=== PATIENT | female | born 1950 | race Caucasian/White ===

== ENCOUNTER → 2018-02-22 15:16 | Outpatient (CLI) | payer MEDICARE, BC, SELFPAY ==
[2018-02-22 17:45] LABS: Absolute Lymphocyte Count 1.14 X10^3/ul (0.83-4.51); Absolute Neutrophil Count 3.9 X10^3/uL (2.0-7.7); Basophil# 0.03 X10^3/uL; Basophil% 0.5 % (0-1); Eosinophil# 0.28 X10^3/uL; Eosinophils% 4.6 % (0-5); Hematocrit 41.4 % (37-47); Hemoglobin 13.7 g/dl (12.0-15.0); Lymphocyte # 1.14 X10^3/ul (4.0); Lymphocyte % 18.9 % (19-41); Mean Corp Hgb Conc 33.1 g/gl (32-36); Mean Corpuscular Hgb 33.1 pg (27.0-32.0); Mean Platelet Vol. 9.4 fl (6.2-12.0); Monocyte# 0.66 X10^3/uL; Monocyte% 10.9 % (0-10); Neutrophil # 3.92 X10^3/uL (2.7-7.7); Neutrophil % 64.9 % (47-70); Platelet Count 274 K/mm3 (150-450); RBC Distribution Width SD 47.4 fl (35.1-43.9); Red Blood Count 4.14 M/mm3 (4.2-5.4)
[2018-02-22 17:54] LABS: POSITIVE COUNT NO; POSITIVE DIFFERENTIAL NO; POSITIVE MORPHOLOGY NO
[2018-02-22 18:01] LABS: AST(SGOT) 31 U/L (15-37); Alanine Aminotransfer ALT/SGPT 28 U/L (13-56); Albumin, Serum 3.6 g/dL (3.2-5.0); Alkaline Phosphatase 83 U/L (45-117); Anion Gap 7 (5-15); BUN 17 mg/dL (7-18); BUN/Creat Ratio 18.1 RATIO (10-20); CRP 4.76 mg/L (0.0-3.0); Calcium,Total 8.7 mg/dL (8.5-10.1); Chloride 108 mmol/L (98-107); Creatinine, Serum 0.94 mg/dL (0.55-1.02); EST Glomerular Filtration Rate 63 mL/min (>60); Est Glom Filt Rate - Afr Amer 76 mL/min (>60); Globulin 3.7 g/dL (2.2-4.2); Glucose 80 mg/dL (74-106); Potassium 4.1 mmol/L (3.5-5.1); Protein, Total 7.3 g/dL (6.4-8.2); Sodium Level 143 mmol/L (136-145)
[2018-02-22 18:07] LABS: Erythrocyte Sedimentation Rate 10 mm/hr (0-30)
== END ==
PROVIDERS: Family Provider Family Medicine; PCP Family Medicine; Visit Provider Internal Medicine Rheumatology
DX: M06.09 Rheumatoid arthritis without rheumatoid factor, multiple sites (principal); Z79.899 Other long term (current) drug therapy; M15.9 Polyosteoarthritis, unspecified; F32.89 Other specified depressive episodes; E89.0 Postprocedural hypothyroidism; G47.33 Obstructive sleep apnea (adult) (pediatric)
CPT/HCPCS: 36415; 80053; 85025; 85652; 86140

== ENCOUNTER → 2019-02-06 07:21 | Outpatient (CLI) | payer MEDICARE, BC, SELFPAY ==
[2019-02-06 10:17] LABS: Erythrocyte Sedimentation Rate 4 mm/hr (0-30)
[2019-02-06 10:25] LABS: Absolute Lymphocyte Count 1.29 X10^3/uL (0.83-4.51); Absolute Neutrophil Count 2.5 X10^3/uL (2.0-7.7); Basophil# 0.04 X10^3/uL; Basophil% 0.9 % (0-1); Eosinophil# 0.22 X10^3/uL; Eosinophils% 4.8 % (0-5); Hemoglobin 13.9 g/dL (12.0-15.0); Lymphocyte # 1.29 X10^3/ul (4.0); Lymphocyte % 28.4 % (19-41); Mean Corp Hgb Conc 33.9 g/dL (32-36); Mean Corpuscular Hgb 33.7 pg (27.0-32.0); Mean Corpuscular Volume 99.3 fL (81-99); Mean Platelet Vol. 9.3 fl (6.2-12.0); Monocyte# 0.53 X10^3/uL; Monocyte% 11.6 % (0-10); Neutrophil # 2.45 X10^3/uL (2.7-7.7); Neutrophil % 53.9 % (47-70); Platelet Count 263 K/mm3 (150-450); RBC Distribution Width CV 11.9 % (11.6-14.6); Red Blood Count 4.13 M/mm3 (4.2-5.4); White Blood Count 4.6 K/mm3 (4.4-11.0)
[2019-02-06 10:42] LABS: AST(SGOT) 24 U/L (15-37); Alanine Aminotransfer ALT/SGPT 24 U/L (13-56); Albumin, Serum 3.4 g/dL (3.2-5.0); Alkaline Phosphatase 76 U/L (45-117); Anion Gap 6 (5-15); BUN 22 mg/dL (7-18); BUN/Creat Ratio 22.4 RATIO (10-20); CRP < 2.90 mg/L (0.0-3.0); Calcium,Total 8.6 mg/dL (8.5-10.1); Chloride 106 mmol/L (98-107); Creatinine, Serum 0.98 mg/dL (0.55-1.02); EST Glomerular Filtration Rate 59 mL/min (>60); Est Glom Filt Rate - Afr Amer 72 mL/min (>60); Globulin 3.3 g/dL (2.2-4.2); Glucose 92 mg/dL (74-106); Potassium 4.1 mmol/L (3.5-5.1); Protein, Total 6.7 g/dL (6.4-8.2); Sodium Level 141 mmol/L (136-145)
== END ==
PROVIDERS: Family Provider Family Medicine; PCP Family Medicine; Referring Provider Internal Medicine Rheumatology; Visit Provider Internal Medicine Rheumatology
DX: M06.09 Rheumatoid arthritis without rheumatoid factor, multiple sites (principal); Z79.899 Other long term (current) drug therapy; M15.9 Polyosteoarthritis, unspecified; E89.0 Postprocedural hypothyroidism; G47.33 Obstructive sleep apnea (adult) (pediatric); F32.89 Other specified depressive episodes
CPT/HCPCS: 36415; 80053; 85025; 85652; 86140

== ENCOUNTER → 2019-03-27 15:18 | Outpatient (CLI) | payer MEDICARE, BC, SELFPAY ==
[2017-02-15 07:04] VITALS: BMI 28.1
[2019-03-27 19:43] LABS: M R Staph aureus DNA By PCR Negative (Negative); Probe Check PASS; Specimen Processing Control PASS
== END ==
PROVIDERS: Family Provider Family Medicine; PCP Family Medicine; Referring Provider Internal Medicine Pulmonary Disease; Visit Provider Internal Medicine Pulmonary Disease
DX: J34.89 Other specified disorders of nose and nasal sinuses (principal)
CPT/HCPCS: 87641

== ENCOUNTER → 2019-04-09 08:45 | Outpatient (CLI) | payer MEDICARE, BC, SELFPAY ==
[2017-02-15 07:04] VITALS: BMI 28.1
[2019-04-09 10:07] LABS: Absolute Lymphocyte Count 1.01 X10^3/uL (0.83-4.51); Absolute Neutrophil Count 2.1 X10^3/uL (2.0-7.7); Basophil# 0.05 X10^3/uL; Basophil% 1.3 % (0-1); Eosinophil# 0.17 X10^3/uL; Eosinophils% 4.5 % (0-5); Hematocrit 39.8 % (37-47); Hemoglobin 13.5 g/dL (12.0-15.0); Lymphocyte # 1.01 X10^3/ul (4.0); Mean Corp Hgb Conc 33.9 g/dL (32-36); Mean Corpuscular Hgb 34.2 pg (27.0-32.0); Mean Corpuscular Volume 100.8 fL (81-99); Mean Platelet Vol. 8.8 fl (6.2-12.0); Monocyte# 0.41 X10^3/uL; NRBC Flagged by Analyzer 0 % (0-5); Neutrophil # 2.07 X10^3/uL (2.7-7.7); Neutrophil % 55.4 % (47-70); Platelet Count 234 K/mm3 (150-450); RBC Distribution Width CV 13.3 % (11.6-14.6); RBC Distribution Width SD 47.8 fl (35.1-43.9); Red Blood Count 3.95 M/mm3 (4.2-5.4); White Blood Count 3.7 K/mm3 (4.4-11.0)
[2019-04-09 10:36] LABS: AST(SGOT) 27 U/L (15-37); Alanine Aminotransfer ALT/SGPT 28 U/L (13-56); Albumin, Serum 3.6 g/dL (3.2-5.0); Alkaline Phosphatase 90 U/L (45-117); Anion Gap 8 (5-15); BUN 18 mg/dL (7-18); BUN/Creat Ratio 21.1 RATIO (10-20); Calcium,Total 8.8 mg/dL (8.5-10.1); Chloride 109 mmol/L (98-107); Creatinine, Serum 0.85 mg/dL (0.55-1.02); EST Glomerular Filtration Rate 70 mL/min (>60); Est Glom Filt Rate - Afr Amer 85 mL/min (>60); Globulin 3.5 g/dL (2.2-4.2); Glucose 92 mg/dL (74-106); Potassium 4.5 mmol/L (3.5-5.1); Protein, Total 7.1 g/dL (6.4-8.2); Sodium Level 143 mmol/L (136-145)
== END ==
PROVIDERS: Family Provider Family Medicine; PCP Family Medicine; Referring Provider Internal Medicine Rheumatology; Visit Provider Internal Medicine Rheumatology
DX: M06.09 Rheumatoid arthritis without rheumatoid factor, multiple sites (principal); M18.11 Unilateral primary osteoarthritis of first carpometacarpal joint, right hand; E89.0 Postprocedural hypothyroidism; G47.33 Obstructive sleep apnea (adult) (pediatric); Z79.899 Other long term (current) drug therapy
CPT/HCPCS: 36415; 80053; 85025

== ENCOUNTER → 2019-11-27 13:54 | Outpatient (CLI) | payer MEDICARE, BC, SELFPAY ==
[2017-02-15 07:04] VITALS: BMI 28.1
[2019-11-27 14:47] LABS: Absolute Lymphocyte Count 1.22 X10^3/uL (0.83-4.51); Absolute Neutrophil Count 2.9 X10^3/uL (2.0-7.7); Basophil# 0.03 X10^3/uL; Basophil% 0.6 % (0-1); Eosinophil# 0.15 X10^3/uL; Eosinophils% 3.1 % (0-5); Hematocrit 39.6 % (37-47); Hemoglobin 13.5 g/dL (12.0-15.0); Lymphocyte # 1.22 X10^3/ul (4.0); Lymphocyte % 25.5 % (19-41); Mean Corp Hgb Conc 34.1 g/dL (32-36); Mean Corpuscular Hgb 33.5 pg (27.0-32.0); Mean Corpuscular Volume 98.3 fL (81-99); Mean Platelet Vol. 9.2 fl (6.2-12.0); Monocyte% 10.5 % (0-10); NRBC Flagged by Analyzer 0 % (0-5); Neutrophil # 2.87 X10^3/uL (2.7-7.7); Neutrophil % 60.1 % (47-70); Platelet Count 234 K/mm3 (150-450); RBC Distribution Width CV 12.1 % (11.6-14.6); RBC Distribution Width SD 44.1 fl (35.1-43.9); Red Blood Count 4.03 M/mm3 (4.2-5.4); White Blood Count 4.8 K/mm3 (4.4-11.0)
[2019-11-27 15:44] LABS: AST(SGOT) 27 U/L (15-37); Alanine Aminotransfer ALT/SGPT 28 U/L (13-56); Albumin, Serum 3.6 g/dL (3.2-5.0); Alkaline Phosphatase 85 U/L (45-117); Anion Gap 3 (5-15); BUN 21 mg/dL (7-18); BUN/Creat Ratio 22.3 RATIO (10-20); Calcium,Total 8.9 mg/dL (8.5-10.1); Chloride 108 mmol/L (98-107); Creatinine, Serum 0.94 mg/dL (0.55-1.02); EST Glomerular Filtration Rate 62 mL/min (>60); Est Glom Filt Rate - Afr Amer 75 mL/min (>60); Globulin 3.6 g/dL (2.2-4.2); Glucose 88 mg/dL (74-106); Protein, Total 7.2 g/dL (6.4-8.2); Sodium Level 139 mmol/L (136-145)
== END ==
PROVIDERS: PCP Family Medicine; Referring Provider Internal Medicine Rheumatology; Visit Provider Internal Medicine Rheumatology
DX: M06.00 Rheumatoid arthritis without rheumatoid factor, unspecified site (principal); M18.11 Unilateral primary osteoarthritis of first carpometacarpal joint, right hand; F32.89 Other specified depressive episodes; E89.0 Postprocedural hypothyroidism; G47.33 Obstructive sleep apnea (adult) (pediatric); Z79.899 Other long term (current) drug therapy
CPT/HCPCS: 36415; 80053; 85025

== ENCOUNTER → 2019-12-10 07:07 | Outpatient (CLI) | payer MEDICARE, BC, SELFPAY ==
[2017-02-15 07:04] VITALS: BMI 28.1
[2019-12-10 10:22] LABS: Cholesterol 214 mg/dL (200); High Density Lipoprotein 58 mg/dL; Thyroid Stim Hormone (TSH) 3.34 uIU/mL (0.358-3.74); Triglycerides 121 mg/dL; Very Low Density Lipoprotein 24 mg/dL (5-40)
== END ==
PROVIDERS: PCP Family Medicine; Referring Provider Family Medicine; Visit Provider Family Medicine
DX: E78.00 Pure hypercholesterolemia, unspecified (principal); E03.9 Hypothyroidism, unspecified
CPT/HCPCS: 36415; 80061; 84443

== ENCOUNTER → 2020-03-20 14:55 | Outpatient (CLI) | payer MEDICARE, BC, SELFPAY ==
[2017-02-15 07:04] VITALS: BMI 28.1
[2020-03-20 17:33] LABS: Absolute Lymphocyte Count 1.03 X10^3/uL (0.83-4.51); Absolute Neutrophil Count 3.7 X10^3/uL (2.0-7.7); Basophil# 0.02 X10^3/uL; Basophil% 0.4 % (0-1); Eosinophil# 0.12 X10^3/uL; Eosinophils% 2.3 % (0-5); Hematocrit 40.9 % (37-47); Hemoglobin 13.9 g/dL (12.0-15.0); Lymphocyte # 1.03 X10^3/ul (4.0); Lymphocyte % 19.7 % (19-41); Mean Corpuscular Hgb 34.2 pg (27.0-32.0); Mean Corpuscular Volume 100.5 fL (81-99); Mean Platelet Vol. 9.9 fl (6.2-12.0); Monocyte# 0.37 X10^3/uL; Monocyte% 7.1 % (0-10); NRBC Flagged by Analyzer 0 % (0-5); Neutrophil # 3.68 X10^3/uL (2.7-7.7); Neutrophil % 70.3 % (47-70); Platelet Count 269 K/mm3 (150-450); RBC Distribution Width CV 11.9 % (11.6-14.6); RBC Distribution Width SD 43.4 fl (35.1-43.9); Red Blood Count 4.07 M/mm3 (4.2-5.4); White Blood Count 5.2 K/mm3 (4.4-11.0)
[2020-03-20 17:54] LABS: ALB/GLOB Ratio 1.1 RATIO (0.9-2.4); AST(SGOT) 30 U/L (15-37); Alanine Aminotransfer ALT/SGPT 33 U/L (13-56); Albumin, Serum 3.7 g/dL (3.2-5.0); Alkaline Phosphatase 88 U/L (45-117); Anion Gap 6 (5-15); BUN 18 mg/dL (7-18); BUN/Creat Ratio 16.4 RATIO (10-20); Calcium,Total 8.6 mg/dL (8.5-10.1); Chloride 107 mmol/L (98-107); EST Glomerular Filtration Rate 52 mL/min (>60); Est Glom Filt Rate - Afr Amer 63 mL/min (>60); Globulin 3.5 g/dL (2.2-4.2); Glucose 160 mg/dL (74-106); Potassium 3.7 mmol/L (3.5-5.1); Protein, Total 7.2 g/dL (6.4-8.2); Sodium Level 139 mmol/L (136-145)
== END ==
PROVIDERS: PCP Family Medicine; Referring Provider Internal Medicine Rheumatology; Visit Provider Internal Medicine Rheumatology
DX: M06.00 Rheumatoid arthritis without rheumatoid factor, unspecified site (principal); M15.9 Polyosteoarthritis, unspecified; F32.89 Other specified depressive episodes; E89.0 Postprocedural hypothyroidism; G47.33 Obstructive sleep apnea (adult) (pediatric); Z79.899 Other long term (current) drug therapy
CPT/HCPCS: 36415; 80053; 85025

== ENCOUNTER → 2020-12-25 08:11 | Outpatient (CLI) | payer MEDICARE, BC, SELFPAY ==
[2017-02-15 07:04] VITALS: BMI 28.1
[2020-12-25 10:31] LABS: Absolute Lymphocyte Count 0.97 X10^3/uL (0.83-4.51); Absolute Neutrophil Count 1.9 X10^3/uL (2.0-7.7); Basophil# 0.03 X10^3/uL; Basophil% 0.8 % (0-1); Eosinophil# 0.16 X10^3/uL; Eosinophils% 4.5 % (0-5); Hematocrit 42.1 % (37-47); Hemoglobin 13.9 g/dL (12.0-15.0); Lymphocyte # 0.97 X10^3/ul (0.83-4.51); Lymphocyte % 27.3 % (19-41); Mean Corpuscular Hgb 33.5 pg (27.0-32.0); Mean Corpuscular Volume 101.4 fL (81-99); Mean Platelet Vol. 9.3 fl (6.2-12.0); Monocyte# 0.45 X10^3/uL; Monocyte% 12.7 % (0-10); NRBC Flagged by Analyzer 0 % (0-5); Neutrophil # 1.93 X10^3/uL (2.7-7.7); Neutrophil % 54.4 % (47-70); Platelet Count 241 K/mm3 (150-450); RBC Distribution Width SD 44.8 fl (35.1-43.9); Red Blood Count 4.15 M/mm3 (4.2-5.4); White Blood Count 3.6 K/mm3 (4.4-11.0)
[2020-12-25 10:38] LABS: ALB/GLOB Ratio 1.2 RATIO (0.9-2.4); AST(SGOT) 26 U/L (15-37); Alanine Aminotransfer ALT/SGPT 27 U/L (13-56); Albumin, Serum 3.7 g/dL (3.2-5.0); Alkaline Phosphatase 69 U/L (45-117); Anion Gap 4 (5-15); BUN 17 mg/dL (7-18); Calcium,Total 9.1 mg/dL (8.5-10.1); Chloride 108 mmol/L (98-107); EST Glomerular Filtration Rate 66 mL/min (>60); Est Glom Filt Rate - Afr Amer 80 mL/min (>60); Globulin 3.2 g/dL (2.2-4.2); Glucose 101 mg/dL (74-106); Potassium 4.2 mmol/L (3.5-5.1); Protein, Total 6.9 g/dL (6.4-8.2); Sodium Level 142 mmol/L (136-145)
[2020-12-25 10:53] LABS: Cholesterol 195 mg/dL (200); High Density Lipoprotein 57 mg/dL; Thyroid Stim Hormone (TSH) 0.81 uIU/mL (0.358-3.74); Triglycerides 120 mg/dL; Very Low Density Lipoprotein 24 mg/dL (5-40)
== END ==
PROVIDERS: PCP Family Medicine; Referring Provider Internal Medicine Rheumatology; Visit Provider Internal Medicine Rheumatology
DX: M06.00 Rheumatoid arthritis without rheumatoid factor, unspecified site (principal); Z79.899 Other long term (current) drug therapy; M15.9 Polyosteoarthritis, unspecified; M18.11 Unilateral primary osteoarthritis of first carpometacarpal joint, right hand; F32.9 Major depressive disorder, single episode, unspecified; E89.0 Postprocedural hypothyroidism; G47.33 Obstructive sleep apnea (adult) (pediatric)
CPT/HCPCS: 36415; 80053; 80061; 84443; 85025

== ENCOUNTER → 2021-12-31 | Outpatient (CLI) | payer MEDICARE, BC, SELFPAY ==
[2021-12-31 12:21] LABS: Absolute Lymphocyte Count 0.84 X10^3/uL (0.83-4.51); Absolute Neutrophil Count 2.7 X10^3/uL (2.0-7.7); Basophil# 0.03 X10^3/uL; Basophil% 0.7 % (0-1); Eosinophil# 0.13 X10^3/uL; Eosinophils% 3.2 % (0-5); Hematocrit 40.4 % (37-47); Hemoglobin 13.7 g/dL (12.0-15.0); Lymphocyte # 0.84 X10^3/ul (0.83-4.51); Lymphocyte % 20.4 % (19-41); Mean Corp Hgb Conc 33.9 g/dL (32-36); Mean Corpuscular Hgb 33.8 pg (27.0-32.0); Mean Corpuscular Volume 99.8 fL (81-99); Mean Platelet Vol. 9.1 fl (6.2-12.0); Monocyte% 9.7 % (0-10); NRBC Flagged by Analyzer 0 % (0-5); Neutrophil % 65.8 % (47-70); Platelet Count 268 K/mm3 (150-450); RBC Distribution Width CV 11.9 % (11.6-14.6); RBC Distribution Width SD 43.3 fl (35.1-43.9); Red Blood Count 4.05 M/mm3 (4.2-5.4); White Blood Count 4.1 K/mm3 (4.4-11.0)
[2021-12-31 13:06] LABS: ALB/GLOB Ratio 1.2 RATIO (0.9-2.4); AST(SGOT) 28 U/L (15-37); Alanine Aminotransfer ALT/SGPT 38 U/L (13-56); Albumin, Serum 3.8 g/dL (3.2-5.0); Alkaline Phosphatase 70 U/L (45-117); Anion Gap 5 (5-15); BUN 19 mg/dL (7-18); Calcium,Total 9.2 mg/dL (8.5-10.1); Chloride 108 mmol/L (98-107); Creatinine, Serum 1.12 mg/dL (0.55-1.02); EST Glomerular Filtration Rate 51 mL/min (>60); Est Glom Filt Rate - Afr Amer 61 mL/min (>60); Globulin 3.2 g/dL (2.2-4.2); Glucose 76 mg/dL (74-106); Potassium 4.1 mmol/L (3.5-5.1); Sodium Level 140 mmol/L (136-145)
== END | disposition home or self-care (01) ==
LOC: MTLAB 11:13
PROVIDERS: PCP Nurse Practitioner Family; Referring Provider Internal Medicine Rheumatology; Visit Provider Internal Medicine Rheumatology
DX: M06.00 Rheumatoid arthritis without rheumatoid factor, unspecified site (principal); M18.11 Unilateral primary osteoarthritis of first carpometacarpal joint, right hand; F32.A Depression, unspecified; E89.0 Postprocedural hypothyroidism; Z79.899 Other long term (current) drug therapy
CPT/HCPCS: 36415; 80053; 85025

== ENCOUNTER → 2022-02-08 | Outpatient (CLI) | payer MEDICARE, BC, SELFPAY ==
[2022-02-08 17:32] LABS: Absolute Neutrophil Count 2.9 X10^3/uL (2.0-7.7); Basophil# 0.02 X10^3/uL; Basophil% 0.4 % (0-1); Eosinophil# 0.11 X10^3/uL; Eosinophils% 2.4 % (0-5); Hematocrit 41.5 % (37-47); Hemoglobin 14.1 g/dL (12.0-15.0); Lymphocyte % 25.8 % (19-41); Mean Corpuscular Hgb 33.7 pg (27.0-32.0); Mean Platelet Vol. 9.6 fl (6.2-12.0); Monocyte# 0.45 X10^3/uL; Monocyte% 9.7 % (0-10); NRBC Flagged by Analyzer 0 % (0-5); Neutrophil # 2.87 X10^3/uL (2.7-7.7); Neutrophil % 61.5 % (47-70); Platelet Count 247 K/mm3 (150-450); RBC Distribution Width CV 11.8 % (11.6-14.6); RBC Distribution Width SD 42.9 fl (35.1-43.9); Red Blood Count 4.19 M/mm3 (4.2-5.4); White Blood Count 4.7 K/mm3 (4.4-11.0)
[2022-02-08 18:04] LABS: Anion Gap 7 (5-15); BUN 20 mg/dL (7-18); BUN/Creat Ratio 22.5 RATIO (10-20); Calcium,Total 9.4 mg/dL (8.5-10.1); Chloride 107 mmol/L (98-107); Creatinine, Serum 0.89 mg/dL (0.55-1.02); EST Glomerular Filtration Rate 66 mL/min (>60); Est Glom Filt Rate - Afr Amer 80 mL/min (>60); Glucose 80 mg/dL (74-106); Sodium Level 141 mmol/L (136-145)
== END | disposition home or self-care (01) ==
LOC: MTLAB 14:25
PROVIDERS: PCP Family Medicine; Referring Provider Family Medicine; Visit Provider Family Medicine
DX: Z01.812 Encounter for preprocedural laboratory examination (principal)
CPT/HCPCS: 36415; 80048; 85025

== ENCOUNTER 2022-04-15 09:25 | Outpatient (RCR) | payer MEDICARE, BC, SELFPAY ==
--- NOTE | 2022-04-15 11:45 | HP.PTEVAL_ITS ---
Patient's Visit Information GURWINDER VALDES is a 71 year old F referred to Physical Therapy by Dr. Vibha Pabon MD with a diagnosis of LEFT HAMSTRING STRAIN. Date of Evaluation: 04/15/22 Physical Therapist: Judie Arreola PT, Cert MDT - Visit Plan Frequency: 2x /Week Duration: 4-6 Weeks Plan: *PATIENT REPORTS SHE DID NOT TELL DR. PABON ABOUT HER L GROIN PAIN OR HER UNREPAIRED LEFT ACL. THIS PT RECOMMENDED PATIENT DISCUSS THESE WITH DR. PABON BEFORE PROCEEDING WITH THERAPY INCASE SHE WANTS TO DO MORE TESTING OR HAVE HER SEE SPECIALIST. PATIENT IS AGREEABLE*. GAIT TRAINING. DLS. POSTURE CORRECTION/STRENGTHENING. LLE ROM, STRETCHING AND STRENGTHEING. - Subjective THIS PATIENT PRESENTS TO PT WITH C/O PAIN BEHIND HER LEFT KNEE BUT WHEN SHE LAYS DOWN AT NIGHT SHE HAS PAIN ALL THE WAY DOWN HER LEG FROM HER BUTT TO HER ANKLE. SHE ALSO REPORTS LEFT GROIN AND THIGH PAIN. THE PAIN KEEPS HER FROM FALLING ASLEEP. PATIENT DENIES NUMBNESS AND TINGLING. DURING THE DAY AND WALKING MOST OF THE PAIN IS BEHIND HER KNEE. THE PAIN STARTED TUESDAY (04/10/22) FOR NO APPARENT REASON BUT STARTED WEARING A HARD INSOLE GIVEN TO HER FOR LEFT SHOE AFTER SURGICAL BOOT (L FOOT SX 02/15/22) TUESDAY (04/09/22). PATIENT REPORTS SHE DID REALLY GOOD WITH THE BOOT AFTER FOOT SURGERY (FOR ARTHRITIS - FUSED BIG TOE - NO MOBILITY THERE NOW). STILL WEARING HARD INSOLE AND HAS NOT TRIED TAKING IT OUT. DR. ROSA DID HER FOOT SURGERY AND SHE NOTIFIED THEM OF THE PAIN - THEY OFFERED TO SET HER UP WITH [facility]THO BUT CHOSE TO GO TO PCP INSTEAD. DR. PABON REFERRED HER HERE. PAIN RANGING 1/10 TO 8/10. BETTER IN SITTING. STEPS ARE VERY DIFFICULT. PMH: RA, MULTIPLE FOOT SX'S PRABHAKAR, PRABHAKAR CTR. *UNREPAIRED TORN ACL LEFT LE 20 YEARS AGO* PATIENT DENIES H/O BACK PAIN OR TREATMENTS. 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 CURRENTLY SHE HAS BEEN INSTUCTED BY THE FOOT DOCTOR SHE COULD START WORKING OUT AGAIN BUT TO STOP IF PAIN. ACTIVITY TOLERATED. PATIENT REPORTS THAT THE FOOT DOCTOR TOLD HER LAST WEEK THAT IF THE HARD SHOE INSERT DOESN'T WORK SHE DOESN'T HAVE TO WEAR IT. PATIENT REPORTS SHE THINKS SHE IS GOING TO TRY TO GO WITHOUT IT AND SEE HOW IT EFFECTS HER LEG. - Objective Sitting/Standing Posture: FAIR. DECREASED LUMBAR LORDOSIS. Other Observations: SLOW ANTALGIC GAIT LIMPING ON LLE WITH NO AD OR LOB. INDEP TRANSFERS BUT DIFFICULTY INITIATING GAIT AFTER SITTING AND C/O LEFT THIGH AND GROIN PAIN TRANSFERRING SIT TO SUPINE. C/O LEFT ANTERIOR PROX THIGH AND LEFT GROIN PAIN IN LYING AND CAN NOT FULLY EXTEND HIP TO LAY LEG FLAT IN SUPINE LYING. Sensory deficit: PRABHAKAR LE LIGHT TOUCH SENSATION IS GROSSLY INTACT AND SYMMETRICAL. ROM deficit: PRABHAKAR LE ROM IS WFL EXCEPT LEFT HIP IR IS APPROX 25% LIMITED COMPARED TO RIGHT WITH ERP INTO GROIN AND ERP WITH L HIP ER. THIS PT TESTED LE ROM AND STRENGTH CAREFULLY DUE TO PAIN BEING EASILY PROVOKED. Motor deficit: RIGHT LE 5/5 EXCEPT HIP 4/5. LLE: HIP FLEX 4-/5, ABD 4-/5, ADD 4-/5, IR 3-/5, ER 3+/5, KNEE FLEX/EXT 4-/5, ANKLE DORSIFLEXION 5/5. PATIENT DENIES PAIN WITH KNEE FLEX/EXT TESTING BUT C/O LEFT THIGH FATIGUE FEELING WITH KNEE EXT TESTING. Dural Signs: NEGATIVE PRABHAKAR LE'S. Lumbar mvmt loss: flex - MIN - PATIENT REPORTS LB STIFFNESS AND PRABHAKAR HS TIGHTNESS BUT NO PAIN AND NO SX'S LEFT > RIGHT. ext - MOD - PRODUCES CENTRAL LB DISCOMFORT. R SG - MOD. L SG - MOD. Core strength: POOR. Palpation: NO ACUTE TENDERNESS WITH PALPATION OF THE LOWER THORACIC, LUMBAR OR HIP REGIONS EXCEPT LEFT ISCHIAL TUBEROSITY. PATIENT IS TENDER ALONG L POST THIGH, KNEE AND CALF. TREATMENT: GAIT TRAINING WITH CANE ON LEVEL SURFACES AND UP AND DOWN STEPS WITH STEP TO PATTERN AND ONE HR. PATIENT DEMONSTRATED IMPROVED GAIT AND REPORTED MUCH LESS PAIN WITH GAIT WITH CANE. SHE REPORTS SHE CAN GET A CANE. PATIENT REPORTS SHE DID NOT TELL DR. PABON ABOUT HER L GROIN PAIN OR HER UNREPAIRED LEFT ACL. THIS PT RECOMMENDED PATIENT DISCUSS THESE WITH DR. PABON BEFORE PROCEEDING WITH THERAPY INCASE SHE WANTS TO DO MORE TESTING OR HAVE HER SEE SPECIALIST. PATIENT IS AGREEABLE. - Balance/Special Test Scores Lower Extremity Functional Score: 30 - Goals Goal 1:: INDEP AND SAFE GAIT ON LEVEL SURFACES AND UP AND DOWN STEPS WITHOUT AD OR DEVIATION Goal Time Frame: 4-6 Weeks Goal 2:: INCREASE FUNCTION ROM OF LEFT LE TO EASE ADL'S Goal Time Frame: 4-6 Weeks Goal 3:: INCREASE FUNCTIONAL STRENGTH OF LLE TO EASE ADL'S Goal Time Frame: 4-6 Weeks Goal 4:: PATIENT WILL BE INDEP WITH A HEP FOR CONTINUED IMPROVEMENT ONCE FORMAL PHYSICAL THERAPY CONCLUDES. Goal Time Frame: 4-6 Weeks - Anticipated Interventions Patient/Client Instruction: Educate patient on: Condition, Plan of Care, Risk Factors For the Purpose of:: To improve self management Therapeutic Exercise to Include: Strength training, Body mechanics, Postural training, Flexibilty training, Gait and locomotor training, Neuromotor development, Dynamic Lumbar Stabilization For the Purpose of:: To decrease pain, To increase ROM, To improve muscle performance and motor function, To increase tolerance to activity/condition/position, To improve ability of physical actions for home/community/work/leisure, To improve gait and locomotor functions Cryotherapy (ice pack, ice massage): Yes Thermo therapy (hot pack): Yes Ultrasound (thermal/non thermal): Yes For the Purpose of:: To decrease pain, To improve nutrient delivery to tissue Thank you for the opportunity to evaluate your patient. For Medicare and Medicare HMO plans, please review the plan of care and approve it. It will need to be FAXED BACK to us at [phone] for Medicare purposes. For Medicare only, by signing this I certify the plan of care. Please let me know if there are questions or concerns regarding this plan of care. Physician Signature: Date:
--- NOTE | 2022-07-23 08:45 | HP.PT.NRP ---
GURWINDER VALDES was seen in my office for initial evaluation on 04/15/22. The following Plan of Care was established for this patient: Initial Frequency: 2x /Week Initial Duration: 4-6 Weeks Patient/Client Instruction: Educate patient on: Condition, Plan of Care, Risk Factors For the Purpose of:: To improve self management Therapeutic Exercise to Include: Strength training, Body mechanics, Postural training, Flexibilty training, Gait and locomotor training, Neuromotor development, Dynamic Lumbar Stabilization For the Purpose of:: To decrease pain, To increase ROM, To improve muscle performance and motor function, To increase tolerance to activity/condition/position, To improve ability of physical actions for home/community/work/leisure, To improve gait and locomotor functions Cryotherapy (ice pack, ice massage): Yes Thermo therapy (hot pack): Yes Ultrasound (thermal/non thermal): Yes For the Purpose of:: To decrease pain, To improve nutrient delivery to tissue This patient was last seen in our office 03/25/22. Pertinent comments regarding their Physical therapy will appear below: This patient has not returned to Physical Therapy and is appropriate to return to MD for further follow-up as needed. At this point I will be discontinuing this patient from physical therapy. I would be happy to see this patient again in the future if found appropriate by the physician. Thank you! Judie Arreola, PT, Cert MDT Balance/Gait/Functional tests - Balance/Special Test Scores Lower Extremity Functional Score: 30
== END 2022-04-15 19:00 | disposition home or self-care (01) ==
LOC: PT 09:25
PROVIDERS: PCP Family Medicine; Referring Provider Family Medicine; Visit Provider Family Medicine
DX: S86.112D Strain of other muscle(s) and tendon(s) of posterior muscle group at lower leg level, left leg, subsequent encounter (principal); X58.XXXD Exposure to other specified factors, subsequent encounter
CPT/HCPCS: 97116; 97162

== ENCOUNTER → 2022-04-21 | Outpatient (CLI) | payer MEDICARE, BC, SELFPAY ==
--- NOTE | 2022-04-21 10:25 | RAD_ITS ---
STUDY: XR Knee Complete 4 Views or More 04/21/2022 4:54 PM REASON FOR EXAM: Female, 71 years old. PAIN TECHNIQUE: XR Knee Complete 4 Views or More LEFT COMPARISON: None FINDINGS: Normal visualized distal femur. Normal visualized proximal tibia and fibula. Normal proximal tibiofibular articulation. There is mild degenerative arthrosis of the medial femorotibial compartment. There is mild degenerative arthrosis of the lateral femorotibial compartment. There is mild degenerative arthrosis of the patellofemoral articulation. The soft tissue structures are unremarkable. RAD/Knee 4 or More Views IMPRESSION: Degenerative arthrosis. Electronically Signed: El Millan MD at 16:55 EDT ,
== END | disposition home or self-care (01) ==
LOC: MTRAD 10:24
PROVIDERS: PCP Family Medicine; Referring Provider Family Medicine; Visit Provider Family Medicine
DX: M17.12 Unilateral primary osteoarthritis, left knee (principal)
CPT/HCPCS: 73564

== ENCOUNTER → 2022-12-07 | Outpatient (CLI) | payer MEDICARE, BC, SELFPAY ==
[2022-12-07 15:52] LABS: Absolute Lymphocyte Count 1.07 X10^3/uL (0.83-4.51); Absolute Neutrophil Count 2.9 X10^3/uL (2.0-7.7); Basophil# 0.04 X10^3/uL; Basophil% 0.9 % (0-1); Eosinophil# 0.15 X10^3/uL; Eosinophils% 3.2 % (0-5); Hematocrit 39.1 % (37-47); Hemoglobin 13.2 g/dL (12.0-15.0); Lymphocyte # 1.07 X10^3/ul (0.83-4.51); Lymphocyte % 22.8 % (19-41); Mean Corp Hgb Conc 33.8 g/dL (32-36); Mean Corpuscular Hgb 34.1 pg (27.0-32.0); Mean Platelet Vol. 9.9 fl (6.2-12.0); Monocyte# 0.52 X10^3/uL; Monocyte% 11.1 % (0-10); NRBC Flagged by Analyzer 0 % (0-5); Neutrophil # 2.91 X10^3/uL (2.7-7.7); Neutrophil % 61.8 % (47-70); Platelet Count 263 K/mm3 (150-450); RBC Distribution Width CV 12.5 % (11.6-14.6); RBC Distribution Width SD 45.9 fl (35.1-43.9); Red Blood Count 3.87 M/mm3 (4.2-5.4); White Blood Count 4.7 K/mm3 (4.4-11.0)
[2022-12-07 16:38] LABS: ALB/GLOB Ratio 1.2 RATIO (0.9-2.4); AST(SGOT) 32 U/L (15-37); Alanine Aminotransfer ALT/SGPT 35 U/L (13-56); Albumin, Serum 3.7 g/dL (3.2-5.0); Alkaline Phosphatase 78 U/L (45-117); Anion Gap 7 (5-15); BUN 19 mg/dL (7-18); BUN/Creat Ratio 20.3 RATIO (10-20); Chloride 109 mmol/L (98-107); Creatinine, Serum 0.94 mg/dL (0.55-1.02); EST Glomerular Filtration Rate 62 mL/min (>60); Est Glom Filt Rate - Afr Amer 75 mL/min (>60); Globulin 3.2 g/dL (2.2-4.2); Glucose 81 mg/dL (74-106); Potassium 3.9 mmol/L (3.5-5.1); Protein, Total 6.9 g/dL (6.4-8.2); Sodium Level 141 mmol/L (136-145)
== END | disposition home or self-care (01) ==
LOC: MTLAB 11:13
PROVIDERS: PCP Family Medicine; Referring Provider Internal Medicine Rheumatology; Visit Provider Internal Medicine Rheumatology
DX: M06.00 Rheumatoid arthritis without rheumatoid factor, unspecified site (principal); M17.0 Bilateral primary osteoarthritis of knee; M18.11 Unilateral primary osteoarthritis of first carpometacarpal joint, right hand; F32.9 Major depressive disorder, single episode, unspecified; E89.0 Postprocedural hypothyroidism; G47.33 Obstructive sleep apnea (adult) (pediatric); Z79.899 Other long term (current) drug therapy
CPT/HCPCS: 36415; 80053; 85025

== ENCOUNTER 2023-03-17 14:30 | Outpatient (RCR) | payer MEDICARE, BC, SELFPAY ==
--- NOTE | 2023-03-18 09:04 | HP.OTDCSUM ---
Discharge Summary D/C Summary: It has been my pleasure to treat GURWINDER VALDES under orders from Dr. Dontrell Hightower MD, for the diagnosis of Right ulnar wrist sprain/strain for a total of 5 visit(s). Please see the following information for a summary of their discharge status. Overall Improvement % Improvement: 90 Objective Objective/Function: Lumber Chain Offbearer: R 39# L 50# Wrist 35/85 Lateral collar closer lockstitch R 18# Tripod 16# Goals Patient Goals: Regain Mobility, Regain Strength, Decrease Pain, Decrease Swelling/Stiffness, Use Hand/Wrist/Arm Normally Again, Increase ROM, Resume Former Household Responsibilities (Cooking,Cleaning,Yard, etc.) and Resume Hobbies Goal:ROM equal to unaffected hand: Yes Goal:Lumber Chain Offbearer/Pinch strength at least 75% of unaffected hand: Yes Goal:No pain with affected hand use: Yes Goal:Full use of affected hand in daily activities including work: Yes Other Goal: Pt to demo overall increased indep in ADL/IADL tasks by decreased total DASH score by 10 points by discharge. Pt will demonstrate understanding of 3 joint protection to decrease joint stress while performing ADL tasks by d/c. Pt will demonstrate understanding of 3 adaptive equipment to decrease joint stress while performing ADL tasks by d/c. Plan Plan: work towards thumb strengthening if needed D/C Information Discharge Comments: Pt was seen for 5 skilled OT visits. Therapist educated in thumb care adn provided handouts, US treatments, joint protection, ergonomics, and manual therapy to aid in decreased pain. Pt reports 1 to 0 pain with not pain in wrist. Pt able to state more than 3 different adaptations and demonstrated the brace fitting on her wrist. Patient has increased her collar closer lockstitch and pinch strength. Pt has met all goals. Pt agreeable to discharge. d/c sentence: If there are questions or concerns regarding this patient's occupational therapy, please fell free to call me at [phone]. Thank you for the referral of this patient. Sincerely, Bethany Alberto, OTR/L, CHT
== END 2023-03-17 19:00 | disposition home or self-care (01) ==
LOC: OT 14:30
PROVIDERS: PCP Family Medicine; Referring Provider Family Medicine; Visit Provider Family Medicine
DX: S63.501D Unspecified sprain of right wrist, subsequent encounter (principal)
CPT/HCPCS: 97035; 97140; 97166; 97530

== ENCOUNTER → 2023-11-30 | Outpatient (CLI) | payer MEDICARE, BC, SELFPAY ==
[2023-11-30 12:30] LABS: Absolute Lymphocyte Count 1.24 X10^3/uL (0.83-4.51); Absolute Neutrophil Count 2.8 X10^3/uL (2.0-7.7); Basophil# 0.05 X10^3/uL; Eosinophil# 0.18 X10^3/uL; Eosinophils% 3.7 % (0-5); Hematocrit 39.4 % (37-47); Hemoglobin 13.3 g/dL (12.0-15.0); Lymphocyte # 1.24 X10^3/ul (0.83-4.51); Lymphocyte % 25.6 % (19-41); Mean Corp Hgb Conc 33.8 g/dL (32-36); Mean Corpuscular Hgb 33.1 pg (27.0-32.0); Mean Platelet Vol. 9.1 fl (6.2-12.0); Monocyte# 0.57 X10^3/uL; Monocyte% 11.8 % (0-10); NRBC Flagged by Analyzer 0 % (0-5); Neutrophil # 2.79 X10^3/uL (2.7-7.7); Neutrophil % 57.5 % (47-70); Platelet Count 243 K/mm3 (150-450); RBC Distribution Width CV 11.8 % (11.6-14.6); RBC Distribution Width SD 42.1 fl (35.1-43.9); Red Blood Count 4.02 M/mm3 (4.2-5.4); White Blood Count 4.9 K/mm3 (4.4-11.0)
[2023-11-30 12:34] LABS: ALB/GLOB Ratio 1.2 RATIO (0.9-2.4); AST(SGOT) 34 U/L (15-37); Alanine Aminotransfer ALT/SGPT 30 U/L (13-56); Albumin, Serum 3.6 g/dL (3.2-5.0); Alkaline Phosphatase 67 U/L (45-117); Anion Gap 3 (5-15); BUN 19 mg/dL (7-18); BUN/Creat Ratio 22.4 RATIO (10-20); Calcium,Total 9.2 mg/dL (8.5-10.1); Chloride 108 mmol/L (98-107); Creatinine, Serum 0.85 mg/dL (0.55-1.02); EST Glomerular Filtration Rate 69 mL/min (>60); Est Glom Filt Rate - Afr Amer 84 mL/min (>60); Globulin 3.1 g/dL (2.2-4.2); Glucose 91 mg/dL (74-106); Potassium 4.2 mmol/L (3.5-5.1); Protein, Total 6.7 g/dL (6.4-8.2); Sodium Level 139 mmol/L (136-145)
== END | disposition home or self-care (01) ==
PROVIDERS: PCP Family Medicine; Referring Provider Internal Medicine Rheumatology; Visit Provider Internal Medicine Rheumatology
DX: M06.00 Rheumatoid arthritis without rheumatoid factor, unspecified site (principal); Z79.899 Other long term (current) drug therapy
CPT/HCPCS: 36415; 80053; 85025

== ENCOUNTER 2023-12-30 11:09 | Emergency (ER) | payer MEDICARE, BC, SELFPAY ==
[2023-12-30 11:09] VITALS: BP 211/81; PULSE 82; RESP 19; TEMP 36.2; O2SAT 100; BMI 25.2
[2023-12-30 11:22] VITALS: BMI 25.8
--- NOTE | 2023-12-30 11:40 | CT_ITS ---
STUDY: CTA HEAD AND NECK WITH CONTRAST REASON FOR EXAM: Female, 73 years old. Vision change RADIATION DOSAGE (If Supplied By Facility): CTDIvol = ( 27.25 ) mGy, DLP = ( 1398.21 ) mGycm TECHNIQUE: CT angiography was performed with a multi-detector CT scanner. Data acquisition was obtained from the skull base through the vertex following intravenous administration of IV 100mL Isovue-[id number]. MIP images were reconstructed from the axial data set. Post-processing of the angiographic images was performed, with multiplanar reformation and 3D reconstruction. Individualized dose optimization techniques were used for this CT. COMPARISON: No relevant priors. FINDINGS: Normal bilateral petrous carotid arteries. Normal right cavernous carotid artery with a normal supraclinoid bifurcation. Normal left cavernous carotid artery with a normal supraclinoid bifurcation. Normal right A1 segments of the anterior cerebral artery. Normal left A1 segments of the anterior cerebral artery. Normal intact anterior communicating artery (ACOM). Normal bilateral A2 segments of the anterior cerebral arteries. Normal right M1 and M2 segments of the middle cerebral arteries, with a normal M1 bifurcation. Normal left M1 and M2 segments of the middle cerebral arteries, with a normal M1 bifurcation. Normal right posterior communicating artery (PCOM). Normal left posterior communicating artery (PCOM). Normal bilateral vertebral arteries. Normal basilar artery with a normal basilar bifurcation. The visualized bilateral superior cerebellar (SCA) arteries are normal. Normal bilateral P1, P2 and visualized P3 segments of the posterior cerebral arteries. There is no demonstrated aneurysm of the [place] of [place]. Mild degree of cerebral atrophy. Punctate calcifications are seen in the basal ganglia bilaterally. This is a normal variant in an elderly patient. AORTIC ARCH: There is atherosclerotic calcific plaque formation of the aortic arch and great vessels arising from the aortic arch, without a hemodynamically significant stenosis. There is a normal origin of the brachiocephalic, left common carotid, and left subclavian arteries. Atherosclerotic calcific plaque at the origin of the left subclavian artery. RIGHT CAROTID ARTERIES: Normal right common carotid artery (CCA). Normal right common carotid bulb. Normal origin of the right internal carotid (ICA) artery without a hemodynamically significant stenosis. Normal visualized cervical portion of the right internal carotid artery. Normal origin of the right external carotid artery (ECA). LEFT CAROTID ARTERIES: Normal left common carotid artery (CCA). Normal left common carotid bulb. Normal origin of the left internal carotid (ICA) artery without a hemodynamically significant stenosis. Normal visualized cervical portion of the left internal carotid artery. Normal origin of the left external carotid artery (ECA). VERTEBRAL ARTERIES: Minimal plaque formation in the mid distal portion of the right vertebral artery. CT/CTA Head AND Neck W/ Contrast IMPRESSION: Cerebral atrophy. No stenotic lesions are seen. Electronically Signed: Andrés Feliz MD at 13:18 EDT ,
--- NOTE | 2023-12-30 11:40 | EKG12_ITS ---
Test Reason : NEURO Blood Pressure : / mmHG Vent. Rate : 068 BPM Atrial Rate : 068 BPM P-R Int : 176 ms QRS Dur : 088 ms QT Int : 394 ms P-R-T Axes : 072 -50 028 degrees QTc Int : 418 ms Normal sinus rhythm Left axis deviation Inferior infarct , age undetermined Abnormal ECG When compared with ECG of 25-JAN-2012 12:19, Inferior infarct is now Present Confirmed by JEN KRISHNAN, YURY ([id number]), make up editor CEASAR MOLINA ([id number]) on 01/03/2024 5:52:03 AM Referred By: Confirmed By:YURY LI MD
[2023-12-30 11:41] LABS: Bedside Glucose 88 mg/dL (74-106)
--- NOTE | 2023-12-30 11:43 | EDS_ITS ---
HPI <SANNA Martinez - Last Filed: 12/30/23 13:28> History of Present Illness Chief Complaint: Neuro S/Sx Narrative Narrative: Patient is a 73-year-old female with history of rheumatoid arthritis, osteoarthritis who presents to the emergency department for vision changes. Patient states that she was working in the garage, lifting heavy objects, bending down and lifting things up. Patient states she had an episode where she saw bright lights in bilateral eyes. She described it as geometric shapes with a lot of bright light around them. This lasted approximately 1 minute. This episode happened at approximately 8:45 AM. Patient called her eye doctor who was evaluated, she was dilated, and sent to the ER concern for any stroke. Patient has been asymptomatic since. States she feels slightly nauseated, slightly weak. She does states he is under a great deal of stress. PFSH <SANNA Martinez - Last Filed: 12/30/23 13:28> [facility] Home Medications ?Medication ?Instructions ?Recorded ?Last Taken ?Type cholecalciferol (vitamin D3) 25 1,000 unit PO DAILY 02/01/16 Unknown History mcg (1,000 unit) tablet (Vitamin D3) levothyroxine 112 mcg tablet 125 mcg PO DAILY 02/01/16 Unknown History hydroxychloroquine 200 mg tablet 200 mg PO BIDCM 02/15/17 Unknown History lidocaine 5 % topical patch 1 patch topical DAILY PRN Pain ##10 02/15/17 Unknown Rx amlodipine 5 mg tablet 5 mg PO DAILY #30 tabs 12/30/23 Unknown Rx Allergy/AdvReac Type Severity Reaction Status Date / Time No Known Allergies Allergy Verified 02/15/17 07:03 Social History Smoking Status: Former smoker ROS <SANNA Martinez - Last Filed: 12/30/23 13:28> ROS ED ROS Narrative Constitutional: Negative for fever, chills, weight loss, weakness Eyes: Negative for vision loss, double vision. Positive for blurred vision, bright lights bilateral ENT: Negative for any sore throat, ear pain, congestion Cardiovascular: Negative for any chest pain, tightness, palpitations Respiratory: Negative for any cough, sputum production, hemoptysis, dyspnea, dyspnea on exertion, orthopnea Gastrointestinal: Negative for any abdominal pain, vomiting, diarrhea, constipation, blood in stool, blood in vomit. Positive for nausea : Negative for any urinary frequency, dysuria, retention, blood in urine Muscle skeletal: Negative for any neck pain, back pain Neurological: Negative for any headache, syncope, dizziness Skin: Negative for any rashes, itching, abrasions, lacerations Psychiatric: Negative for any depression, anxiety, stress, suicidal ideation, homicidal ideation Hematologic: Negative for any excessive bruising, easy bleeding EXAM <SANNA Martinez - Last Filed: 12/30/23 13:28> Physical Exam Narrative Exam Narrative: Vital signs reviewed. HEET: Head normocephalic atraumatic, TMs clear bilaterally. Posterior pharynx is clear, moist mucous membranes. Nares clear bilaterally. Pupils are at 7 bilateral they do not react to light, however this is secondary to the patient having been medically dilated by her special needs bus driver. Neck: Supple with no lymphadenopathy or tenderness. No signs of meningismus. Cardiac: Regular rate and rhythm no murmurs gallops or rubs, equal peripheral pulses bilaterally. Respiratory: Lungs clear to auscultation bilaterally. No chest tenderness. Abdomen: Soft, nontender, nondistended. No abdominal bruit or pulsatile masses. No hepatosplenomegaly Extremities: No peripheral edema, no signs of gross trauma or deformity. Active full range of motion of all extremities. Neuro: Cranial nerves II through XII intact, no focal neurological deficits. NIH stroke scale 0 Skin: Clean dry and intact with no rash, purpura, petechiae, vesicles or pustules. Backs/flank: No CVA tenderness, no midline spinal tenderness, no deformity. Psych: Normal mood and affect. No SI, HI or acute psychosis. Const Vital Signs: 12/30/23 11:09 12/30/23 13:09 Temperature 97.2 F L Temperature Source Temporal Pulse Rate 82 67 Respiratory Rate 19 H 14 Blood Pressure 211/81 H 169/84 H Blood Pressure Mean 124 112 Pulse Ox 100 98 Oxygen Delivery Method Room Air Positive well nourished and well developed General Appearance ED: well developed <Dr. Harman Rosario DO - Last Filed: 12/31/23 21:44> Physical Exam Const Vital Signs: 12/30/23 11:09 12/30/23 13:09 Temperature 97.2 F L Temperature Source Temporal Pulse Rate 82 67 Respiratory Rate 19 H 14 Blood Pressure 211/81 H 169/84 H Blood Pressure Mean 124 112 Pulse Ox 100 98 Oxygen Delivery Method Room Air [facility] <Richard EmersonSANNA - Last Filed: 12/30/23 13:28> [facility] Lab Data Labs: Laboratory Results - last 24 hr 12/30/23 12/30/23 12/30/23 11:21 11:41 11:59 WBC 5.6 RBC 4.47 Hgb 14.8 Hct 43.9 MCV 98.2 MCH 33.1 H MCHC 33.7 RDW Std Deviation 43.8 RDW Coeff of [place] 12.0 Plt Count 250 MPV 8.6 Immature Gran % (Auto) 0.400 Neut % (Auto) 66.3 Lymph % (Auto) 21.0 Miner % (Auto) 9.3 Eos % (Auto) 2.3 Baso % (Auto) 0.7 Absolute Neuts (auto) 3.7 Absolute Lymphs (auto) 1.17 Nucleated RBC % 0 Sodium 139 Potassium 4.0 Chloride 107 Carbon Dioxide 25.0 Anion Gap 7 BUN 19 H Creatinine 0.87 Estim Creat Clear Calc 53.04 Est GFR (MDRD) Af Amer 82 Est GFR (MDRD) Non-Af 68 BUN/Creatinine Ratio 21.9 H Glucose 101 Calcium 9.2 Urine Color Yellow Urine Clarity Clear Urine pH 7.0 Ur Specific [place] 1.010 Urine Protein Negative Urine Glucose (UA) Normal Urine Ketones Negative Urine Occult Blood Negative Urine Nitrite Negative Urine Bilirubin Negative Urine Urobilinogen Normal Ur Leukocyte Esterase 25 H Urine RBC 0 SEEN Urine WBC 0-5 SEEN Ur Squamous Epith Cells 0-5 SEEN Urine Bacteria RARE Urine Mucus 0 SEEN POC Glucose 88 Radiography Diagnostic Testing: Clinical Impression(s) from Imaging Studies Head/Neck CTA 12/30/23 11:40 IMPRESSION: Cerebral atrophy. No stenotic lesions are seen. Electronically Signed: Andrés Feliz MD at 13:18 EDT , EKG EKG shows normal sinus rhythm: Attestation: I personally reviewed and interpreted this EKG as follows: Interpretation: Sinus Rhythm Comments: EKG shows normal sinus rhythm, rate of 60 bpm, OK interval 176 ms, QRS duration 88 ms, no acute ST elevation, no acute infarct noted. Treatment and Re-Evaluation :: Differential diagnosis includes however is not limited to: TIA, vasovagal response, corneal abrasion, near syncope, CVA, optic neuritis Patient appears to be in no obvious distress vital signs show some high blood pressure, patient is asymptomatic at this time. Patient appears nontoxic. NIH stroke scale was 0. However secondary the patient's age, hypertension, I do believe the patient needs a stroke workup. Laboratory values will be completed, urinalysis as well as a CTA of the head and neck with a dry CT of the brain. All radiologic examinations were read, reviewed by the emergency department attending. From these reads, a plan of care will be put in place. Patient's repeat blood pressure is 169/84. Patient CTA of the head and neck showed normal bilateral petrous carotid arteries. Normal right cavernous carotid artery with normal supraglenoid bifurcation. Normal left cavernous carotid artery with a normal cervical bifurcation. No stenotic lesions are seen. Patient is still asymptomatic. Patient's laboratory values were unremarkable. Urinalysis was negative for any infection. At this time, I do believe the patient to be discharged home to follow-up outpatient. She will be instructed to start amlodipine 5 mg daily, she will also take a baby aspirin daily. She will follow-up closely with her PCP. Patient is happy with the plan of care, all questions answered, patient stable for discharge. She was given return precautions. <Dr. Harman Rosario, DO - Last Filed: 12/31/23 21:44> [facility] Narrative Medical decision making narrative: I have personally performed a face to face assessment of the patient and have reviewed the MIRIAM Note. I performed a substantive portion of the visit including all aspects of the following. My ballard findings include: History is [patient presents the emergency department with complaint of vision changes that occurred this morning when she was cleaning in the garage. Patient states that she had sat up and noticed geometric shapes in her vision with flashing arrows and lights coming out of the shape bilaterally. She had some blurred vision. Symptoms lasted about a minute and then resolved. She was seen by ophthalmology who did a funduscopic exam and referred to the ER for concern for TIA. Patient also did describe some generalized weakness. Patient tells me she has been under a lot of stress of late. She denies falls or head injuries. Patient also noted to be hypertensive on arrival to the emergency department and is not on blood pressure medication.] Exam is [HEENT-PERRLA, EOMI. Cranial nerves II through XII grossly intact. TMs clear. Mucous membranes moist. No adenopathy. Cardiovascular-regular rate and rhythm without murmur or ectopy Lungs-clear to auscultation, chest wall stable without crepitus or subcu emphysema Abdomen-normoactive bowel sounds, soft, nontender, no rebound or rigidity, no peritoneal signs. Extremities-intact ?4, normal range of motion, normal pulses, atraumatic] Neuro exam-NIH stroke scale 0. No focal weakness. Finger-nose and heel kinsey testing within normal limits, negative Romberg, negative , Fundi benign Medical Decison Making [patient presents with vague complaints of vision changes and seen by her special needs bus driver who had concern about possible TIA. Symptoms currently completely resolved. She did present hypertensive and we did give her labetalol IV. CBC with differential obtained was normal. Chemistries unremarkable. Urinalysis was normal. CTA head and neck was unremarkable. This point I am not convinced she had a TIA based on her description of symptoms. She described a generalized weakness and there was no focality. I do not feel she needs admitted. Will advise on a baby aspirin and will start on amlodipine 5 mg a day to manage her blood pressure. Advised to follow-up with her primary care physician within next 3 to 5 days. Patient advised to return if severe headache, difficulty with balance or speech, persistent vision changes or condition should worsen anyway.] Other additions or changes: [None] Lab Data Labs: Laboratory Results - last 24 hr 12/30/23 12/30/23 12/30/23 11:21 11:41 11:59 WBC 5.6 RBC 4.47 Hgb 14.8 Hct 43.9 MCV 98.2 MCH 33.1 H MCHC 33.7 RDW Std Deviation 43.8 RDW Coeff of [place] 12.0 Plt Count 250 MPV 8.6 Immature Gran % (Auto) 0.400 Neut % (Auto) 66.3 Lymph % (Auto) 21.0 Miner % (Auto) 9.3 Eos % (Auto) 2.3 Baso % (Auto) 0.7 Absolute Neuts (auto) 3.7 Absolute Lymphs (auto) 1.17 Nucleated RBC % 0 Sodium 139 Potassium 4.0 Chloride 107 Carbon Dioxide 25.0 Anion Gap 7 BUN 19 H Creatinine 0.87 Estim Creat Clear Calc 53.04 Est GFR (MDRD) Af Amer 82 Est GFR (MDRD) Non-Af 68 BUN/Creatinine Ratio 21.9 H Glucose 101 Calcium 9.2 Urine Color Yellow Urine Clarity Clear Urine pH 7.0 Ur Specific [place] 1.010 Urine Protein Negative Urine Glucose (UA) Normal Urine Ketones Negative Urine Occult Blood Negative Urine Nitrite Negative Urine Bilirubin Negative Urine Urobilinogen Normal Ur Leukocyte Esterase 25 H Urine RBC 0 SEEN Urine WBC 0-5 SEEN Ur Squamous Epith Cells 0-5 SEEN Urine Bacteria RARE Urine Mucus 0 SEEN POC Glucose 88 Radiography Diagnostic Testing: Clinical Impression(s) from Imaging Studies Head/Neck CTA 12/30/23 11:40 IMPRESSION: Cerebral atrophy. No stenotic lesions are seen. Electronically Signed: Andrés Feliz MD at 13:18 EDT , Discharge Plan Triage Chief Complaint: Neuro S/Sx ED Midlevel Provider: Richard Emerson ED Provider: Harman Rosario Dx/Rx/DC Orders Clinical Impression: Alteration in vision, Nausea, Hypertension Instructions: Understanding Vision Problems, How the Eye Works, ED Hypertension New Begin Treatment Prescriptions: New amlodipine 5 mg tablet 5 mg PO DAILY Qty: 30 2RF No Action levothyroxine 112 MCG tablet 125 mcg PO DAILY cholecalciferol (vitamin D3) [Vitamin D3] 1,000 UNIT tablet 1,000 unit PO DAILY lidocaine 1 PATCH patch 1 patch topical DAILY PRN (Reason: Pain) Qty: 10 0RF Rx Instructions: Apply patch to affected area for up to 12 hours at a time. hydroxychloroquine 200 MG tablet 200 mg PO BIDCM Primary Care Provider: Akshat Noriega Referrals: Akshat Noriega MD [Primary Care Provider] - Activity Restrictions/Additional Instructions: You will start taking amlodipine 5 mg daily. Also start taking aspirin 81 mg this is considered a baby aspirin daily. He to follow-up with your PCP. Return for any worsening symptoms. Print Language: Syriac Disposition Disposition: Home, Self Care Discharge Date/Time: 12/30/23 13:52
[2023-12-30 11:53] LABS: Absolute Lymphocyte Count 1.17 X10^3/uL (0.83-4.51); Absolute Neutrophil Count 3.7 X10^3/uL (2.0-7.7); Basophil# 0.04 X10^3/uL; Basophil% 0.7 % (0-1); Eosinophil# 0.13 X10^3/uL; Eosinophils% 2.3 % (0-5); Hematocrit 43.9 % (37-47); Hemoglobin 14.8 g/dL (12.0-15.0); Lymphocyte # 1.17 X10^3/ul (0.83-4.51); Mean Corp Hgb Conc 33.7 g/dL (32-36); Mean Corpuscular Hgb 33.1 pg (27.0-32.0); Mean Corpuscular Volume 98.2 fL (81-99); Mean Platelet Vol. 8.6 fl (6.2-12.0); Monocyte# 0.52 X10^3/uL; Monocyte% 9.3 % (0-10); NRBC Flagged by Analyzer 0 % (0-5); Neutrophil # 3.69 X10^3/uL (2.7-7.7); Neutrophil % 66.3 % (47-70); Platelet Count 250 K/mm3 (150-450); RBC Distribution Width SD 43.8 fl (35.1-43.9); Red Blood Count 4.47 M/mm3 (4.2-5.4); White Blood Count 5.6 K/mm3 (4.4-11.0)
[2023-12-30] MEDS: Ondansetron 4 MG/2 ML Vial IV (11:57)
[2023-12-30] MEDS: 0.9% Normal Saline (1000mL) 1,000 ML 999 ML IV (11:57)
[2023-12-30 12:04] LABS: Mucous, Urine 0 SEEN /hpf (<or=2+); Red Blood Cells-Urine 0 SEEN /hpf (0-5)
[2023-12-30 12:04] LABS: Anion Gap 7 (5-15); BUN 19 mg/dL (7-18); BUN/Creat Ratio 21.9 RATIO (10-20); Calcium,Total 9.2 mg/dL (8.5-10.1); Chloride 107 mmol/L (98-107); Creatinine, Serum 0.87 mg/dL (0.55-1.02); EST Glomerular Filtration Rate 68 mL/min (>60); Est Glom Filt Rate - Afr Amer 82 mL/min (>60); Estimated Creatinine Clearance 53.04 ml/min; Glucose 101 mg/dL (74-106); Sodium Level 139 mmol/L (136-145)
[2023-12-30 12:05] LABS: Color, Urine Yellow (Yellow); Glucose, Dipstick Normal (Normal); Ketone-Dipstick Negative (Negative); Leukocyte Esterase-Dipstick 25 /ul (Negative); Nitrite-Dipstick Negative (Negative); Occult Blood-Urine Negative /ul (Negative); Protein-Dipstick Negative (Negative); Urine Bilirubin Dipstick Negative (Negative); Urine Clarity Clear (Clear); Urine Urobilinogen Normal (Normal)
[2023-12-30 12:13] LABS: Squamous Epithelial Cells - UA 0-5 SEEN /hpf (5-10)
[2023-12-30 12:14] LABS: Bacteria RARE /hpf (None Seen); White Blood Cells 0-5 SEEN /hpf (0-5)
[2023-12-30] MEDS: Labetalol (Compound) 20 MG/4 ML SYRINGE IV (12:21)
[2023-12-30 13:09] VITALS: BP 169/84; PULSE 67; RESP 14; O2SAT 98
[2023-12-30 13:52] VITALS: BP 158/78; PULSE 68; RESP 14; TEMP 36.2; O2SAT 98
== END 2023-12-30 13:52 | disposition home or self-care (01) ==
PROVIDERS: Nurse Practitioner; Emergency Provider Emergency Medicine; PCP Family Medicine; Visit Provider Emergency Medicine
DX: H53.8 Other visual disturbances (principal); I10 Essential (primary) hypertension; R11.0 Nausea; Z87.891 Personal history of nicotine dependence; H53.10 Unspecified subjective visual disturbances
CPT/HCPCS: 70496; 70498; 80048; 81001; 82962; 85025; 93005; 96361; 96374; 99283; J7030; Q9967; J2405

== ENCOUNTER 2024-01-05 00:09 | Emergency (ER) | payer MEDICARE, BC, SELFPAY ==
[2024-01-05 00:09] VITALS: BP 180/85; PULSE 85; RESP 17; TEMP 36.4; O2SAT 98; BMI 25.6
[2024-01-05 02:09] VITALS: BP 163/80; PULSE 80; RESP 17; O2SAT 98
[2024-01-05 04:00] VITALS: BP 160/80; PULSE 74; RESP 16; O2SAT 98
--- NOTE | 2024-01-05 04:02 | EDS_ITS ---
HPI History of Present Illness Chief Complaint: Hypertension Informant: patient and spouse/S.O. Narrative Narrative: Patient is a 73-year-old female with recent diagnosis of hypertension currently on amlodipine. She states that she has been under a great deal of stress recently secondary to health issues with her . She states that she has noticed her blood pressure has been elevated since the increase stress in her life. She states roughly 5 days ago she was seen in the ER secondary to hypertension and changes in vision and underwent a complete workup for potential stroke and any type of derangement from her high blood pressure. She states the workup was negative and she was placed on amlodipine and has been taking as directed. She states she feels her worsening symptoms stem from anxiety. She states this evening that she developed increased stress when her complained of shortness of breath and then she noticed her blood pressure was elevated once again and therefore presents to the ER for evaluation [facility] Medical History (Updated 01/05/24 @ 23:[address] Markos Kuhn, DO) Alteration in vision HTN (hypertension) Home Medications ?Medication ?Instructions ?Recorded ?Last Taken ?Type cholecalciferol (vitamin D3) 25 1,000 unit PO DAILY 02/01/16 Unknown History mcg (1,000 unit) tablet (Vitamin D3) levothyroxine 112 mcg tablet 125 mcg PO DAILY 02/01/16 Unknown History hydroxychloroquine 200 mg tablet 200 mg PO BIDCM 02/15/17 Unknown History lidocaine 5 % topical patch 1 patch topical DAILY PRN Pain ##10 02/15/17 Unknown Rx amlodipine 5 mg tablet 5 mg PO DAILY #30 tabs 12/30/23 Unknown Rx alprazolam 0.5 mg tablet (Xanax) 0.5 mg PO TID PRN anxiety 7 days 01/05/24 Unknown Rx #21 tabs mirtazapine 30 mg tablet 30 mg PO QHS 01/05/24 Unknown History Allergy/AdvReac Type Severity Reaction Status Date / Time No Known Allergies Allergy Verified 01/05/24 00:10 Social History Smoking Status: Former smoker ROS ROS ED Constitutional Constitutional ED: Denies chills or fever(s) Eyes Eyes: Denies change in vision ENT ENT ED: Denies sore throat Cardiovascular Cardiovascular: Denies chest pain, palpitations or racing heartbeat Respiratory/Chest Respiratory/Chest: Denies cough or dyspnea Gastrointestinal Gastrointestinal: Denies abdominal pain, diarrhea, nausea or vomiting Genitourinary Genitourinary ED: Denies dysuria Musculoskeletal Musculoskeletal: Denies myalgias Integumentary Denies rash Neurologic Neurologic: Denies headache(s) Psychiatric Psychiatric: Reports anxiety; Denies suicidal ideation or suicidal thoughts Hematologic/Lymphatic Hematologic/Lymphatic: Denies easy bleeding or easy bruising EXAM Physical Exam Const Vital Signs: 01/05/24 00:09 01/05/24 01:31 01/05/24 02:09 Temperature 97.6 F L Temperature Source Temporal Pulse Rate 85 80 Respiratory Rate 17 17 Respiratory Effort Normal Short of Breath Respiratory Pattern Normal Blood Pressure 180/85 H 163/80 H Blood Pressure Mean 116 107 Pulse Ox 98 98 Oxygen Delivery Method Room Air Room Air 01/05/24 04:00 01/05/24 04:10 Temperature 97.1 F L Temperature Source Pulse Rate 74 74 Respiratory Rate 16 16 Respiratory Effort Respiratory Pattern Blood Pressure 160/80 H 160/80 H Blood Pressure Mean 106 106 Pulse Ox 98 98 Oxygen Delivery Method Room Air Positive well nourished and well developed General Appearance ED: well developed; Negative for pallor HEENT HEENT Narrative: Normocephalic atraumatic Eyes PERRL and EOMs intact bilaterally Neck supple Neck Narrative: No carotid bruit noted Resp normal respiratory effort and clear to auscultation bilaterally Cardio regular rate and regular rhythm Rate: other Other Details: Heart is regular rate and rhythm without murmurs rubs or gallops Radial and carotid pulses are equal and symmetric GI normal to inspection, nondistended, normoactive bowel sounds, non-tender, non- distended and no masses GI Narrative: No voluntary guarding or rigidity or pulsatile mass Auscultation: normoactive bowel sounds Palpation: soft Extremity normal to inspection Extremity Narrative: No asymmetric edema no pitting edema negative Homans' sign bilaterally Neuro oriented x3, CN's II-XII intact bilaterally and no sensory deficits noted Neuro Narrative: GCS of 15. Cranial nerves II through XII are grossly intact without focal neurologic deficit No pronator drift no dysmetria no truncal ataxia NIH stroke scale score of 0 Sensorium / Orientation: alert Motor Exam: strength 5/5 throughout Psych Psych Narrative: Patient has a nervous/anxious affect without homicidal or suicidal ideation Skin no rashes or lesions noted General Skin Exam: Negative for jaundice or pallor MDM MDM MDM Narrative Medical decision making narrative: Patient arrived to the ER hypertensive but otherwise with stable vitals and had a normal neurologic exam. Differential diagnosis is for accelerated hypertension versus acute kidney injury versus lecture abnormality versus acute coronary syndrome. We discussed repeating basic laboratory studies secondary to the hypertension the patient states as she went through that recently and everything was normal she does not want any further testing obtained at this time. Without any medication given her blood pressure did improve to 160/80 which is roughly 15% from her highest value which is a appropriate reduction in the ER. As her symptoms seem to stem more so from anxiety I do feel she would benefit from treatment and she states she has done well with Xanax in the past. Therefore patient will be prescribed Xanax at this time but as she has no signs of endorgan damage and has had spontaneous improvement of her hypertension she is otherwise safe for discharge History & Record Review Discussion w/independent historian: Patient and Significant other Discharge Plan Triage Chief Complaint: Hypertension ED Provider: Markos Kuhn Dx/Rx/DC Orders Clinical Impression: Hypertension, Anxiety, Hypothyroidism Instructions: ED Anxiety Reaction, ED Hypertension, Established Prescriptions: New alprazolam [Xanax] 0.5 mg tablet 0.5 mg PO TID PRN (Reason: anxiety) 7 Days Qty: 21 0RF No Action levothyroxine 112 MCG tablet 125 mcg PO DAILY cholecalciferol (vitamin D3) [Vitamin D3] 1,000 UNIT tablet 1,000 unit PO DAILY lidocaine 1 PATCH patch 1 patch topical DAILY PRN (Reason: Pain) Qty: 10 0RF Rx Instructions: Apply patch to affected area for up to 12 hours at a time. hydroxychloroquine 200 MG tablet 200 mg PO BIDCM amlodipine 5 mg tablet 5 mg PO DAILY Qty: 30 2RF mirtazapine 30 mg tablet 30 mg PO QHS Primary Care Provider: Akshat Noriega Referrals: Akshat Noriega MD [Primary Care Provider] - Print Language: Lithuanian Disposition Disposition: Home, Self Care Discharge Date/Time: 01/05/24 04:10
[2024-01-05] MEDS: ALPRAZolam 0.5 MG Tablet PO (04:09)
[2024-01-05 04:10] VITALS: BP 160/80; PULSE 74; RESP 16; TEMP 36.2; O2SAT 98
== END 2024-01-05 04:10 | disposition home or self-care (01) ==
PROVIDERS: Emergency Provider Emergency Medicine; PCP Family Medicine; Visit Provider Emergency Medicine
DX: I10 Essential (primary) hypertension (principal); F41.9 Anxiety disorder, unspecified; E03.9 Hypothyroidism, unspecified; Z87.891 Personal history of nicotine dependence; Z79.899 Other long term (current) drug therapy
CPT/HCPCS: 99282

== ENCOUNTER → 2024-04-17 | Outpatient (CLI) | payer MEDICARE, BC, SELFPAY ==
[2024-04-17 10:51] LABS: ALB/GLOB Ratio 1.2 RATIO (0.9-2.4); AST(SGOT) 28 U/L (15-37); Alanine Aminotransfer ALT/SGPT 28 U/L (13-56); Albumin, Serum 3.6 g/dL (3.2-5.0); Alkaline Phosphatase 75 U/L (45-117); Anion Gap 4 (5-15); BUN 15 mg/dL (7-18); BUN/Creat Ratio 17.8 RATIO (10-20); Calcium,Total 9.2 mg/dL (8.5-10.1); Chloride 111 mmol/L (98-107); Cholesterol 194 mg/dL (200); Creatinine, Serum 0.84 mg/dL (0.55-1.02); EST Glomerular Filtration Rate 70 mL/min (>60); Est Glom Filt Rate - Afr Amer 85 mL/min (>60); Free T3 2.5 pg/mL (2.18-3.98); Globulin 3.1 g/dL (2.2-4.2); Glucose 101 mg/dL (74-106); High Density Lipoprotein 62 mg/dL; Potassium 4.3 mmol/L (3.5-5.1); Protein, Total 6.7 g/dL (6.4-8.2); Sodium Level 142 mmol/L (136-145); Triglycerides 105 mg/dL; Very Low Density Lipoprotein 21 mg/dL (5-40)
== END | disposition home or self-care (01) ==
PROVIDERS: PCP Family Medicine; Referring Provider Family Medicine; Visit Provider Family Medicine
DX: I10 Essential (primary) hypertension (principal); E03.9 Hypothyroidism, unspecified
CPT/HCPCS: 36415; 80053; 80061; 84439; 84443; 84481

== ENCOUNTER → 2024-12-05 | Outpatient (CLI) | payer MEDICARE, BC, SELFPAY ==
[2024-12-05 18:38] LABS: ALB/GLOB Ratio 1.6 RATIO (0.9-2.4); AST(SGOT) 31 U/L (<=31); Alanine Aminotransfer ALT/SGPT 23 U/L (<=34); Albumin, Serum 4.2 g/dL (3.4-4.8); Alkaline Phosphatase 69 U/L (35-104); Anion Gap 12 (5-15); BUN 20 mg/dL (4-19); BUN/Creat Ratio 22.4 RATIO (10-20); Calcium,Total 9.5 mg/dL (7.6-11.0); Carbon Dioxide 22.5 mmol/L (21.0-32.0); Chloride 106 mmol/L (98-108); Cholesterol 209 mg/dL (<=200); Creatinine, Serum 0.88 mg/dL (0.70-1.20); EST Glomerular Filtration Rate 68 (>60); Free T3 2.3 pg/mL (2.18-3.98); Globulin 2.6 g/dL (2.2-4.2); Glucose 85 mg/dL (70-99); High Density Lipoprotein 59 mg/dL; Low Density Lipoprotein Calc. 129 mg/dL; Potassium 4.4 mmol/L (3.3-5.1); Protein, Total 6.8 g/dL (5.9-8.4); Sodium Level 140 mmol/L (133-145); Total Bilirubin 0.39 mg/dL (0.00-1.30); Triglycerides 104 mg/dL; Very Low Density Lipoprotein 21 mg/dL (5-40); cholesterol:hdl ratio screen 3.54
== END | disposition home or self-care (01) ==
LOC: MFPLAB 14:49
PROVIDERS: PCP Family Medicine; Referring Provider Family Medicine; Visit Provider Family Medicine
DX: E03.9 Hypothyroidism, unspecified (principal); I10 Essential (primary) hypertension
CPT/HCPCS: 36415; 80053; 80061; 84439; 84443; 84481

== ENCOUNTER → 2025-03-06 | Outpatient (CLI) | payer MEDICARE, BC, SELFPAY ==
[2025-03-06 11:21] LABS: T3 Total - Triiodothyronine 0.94 ng/mL (0.80-2.00); T4 Total, Thyroxin 8.6 ug/dL (4.8-13.9)
== END | disposition home or self-care (01) ==
LOC: MTLAB 07:03
PROVIDERS: PCP Family Medicine; Referring Provider Family Medicine; Visit Provider Family Medicine
DX: E03.9 Hypothyroidism, unspecified (principal)
CPT/HCPCS: 36415; 84436; 84443; 84480

== ENCOUNTER → 2025-04-02 | Outpatient (CLI) | payer MEDICARE, BC, SELFPAY ==
[2025-04-02 17:15] LABS: AST(SGOT) 29 U/L (<=31); Alanine Aminotransfer ALT/SGPT 25 U/L (<=34); Albumin, Serum 4.1 g/dL (3.4-4.8); Alkaline Phosphatase 71 U/L (35-104); Anion Gap 9 (5-15); BUN 17 mg/dL (4-19); BUN/Creat Ratio 17.3 RATIO (10-20); Calcium,Total 9.6 mg/dL (7.6-11.0); Carbon Dioxide 25.8 mmol/L (21.0-32.0); Chloride 105 mmol/L (98-108); Globulin 2.7 g/dL (2.2-4.2); Glucose 116 mg/dL (70-99); Potassium 4.3 mmol/L (3.3-5.1)
[2025-04-02 18:08] LABS: Hematocrit 39.0 % (37-47); Hemoglobin 13.4 g/dL (12.0-15.0); Immature Granulocytes Count 0.010 X10^3/uL (0.0-0.0); Mean Corp Hgb Conc 34.4 g/dL (32-36); Mean Corpuscular Volume 98.7 fL (81-99); Mean Platelet Vol. 9.9 fl (6.2-12.0); NRBC Flagged by Analyzer 0 % (0-5); Platelet Count 257 K/mm3 (150-450); RBC Distribution Width CV 12.2 % (11.6-14.6); RBC Distribution Width SD 44.0 fl (35.1-43.9); Red Blood Count 3.95 M/mm3 (4.2-5.4); White Blood Count 4.5 K/mm3 (4.4-11.0)
== END | disposition home or self-care (01) ==
LOC: MTLAB 13:21
PROVIDERS: PCP Family Medicine; Referring Provider Internal Medicine Rheumatology; Visit Provider Internal Medicine Rheumatology
DX: M06.00 Rheumatoid arthritis without rheumatoid factor, unspecified site (principal); M17.0 Bilateral primary osteoarthritis of knee; M19.041 Primary osteoarthritis, right hand; Z79.899 Other long term (current) drug therapy
CPT/HCPCS: 36415; 80053; 85025

== ENCOUNTER 2025-04-27 08:00 | Outpatient (CLI) | payer MEDICARE, BC, SELFPAY | END 2025-04-27 23:59 | disposition home or self-care (01) | LOC: LAB 06-04 14:48 | PROVIDERS: PCP Family Medicine; Visit Provider Family Medicine | DX: R19.7 Diarrhea, unspecified (principal) | CPT/HCPCS: 87493; 87506 ==